=== PATIENT | female | born 1980 | race American Indian/Alaskan Native ===

== ENCOUNTER 2019-05-04 02:18 | Inpatient (IN) | payer OTHER ==
[2019-05-04] MEDS ORDERED: LACTATED RINGERS 1,000 ML IV ONE (03:05)
[2019-05-04] MEDS ORDERED: BICITRA ORAL LIQD 30ML PO ONE (04:28)
[2019-05-04] MEDS ORDERED: METOCLOPRAMIDE 10 MG/2 ML INJ IV ONE (04:28)
[2019-05-04] MEDS ORDERED: FAMOTIDINE 20 MG/2 ML INJ IV ONE (04:28)
--- NOTE | 2019-05-04 04:28 | History and Physical Report ---
History of Present Illness Date of examination: 05/04/19 History of present illness: Patient presents to labor and delivery with complaints of ruptured membranes approximately 1:30 AM. Evaluation in triage evaluation confirmed ruptured membranes and patient with history of breech presentation ultrasound confirmed breech presentation. Patient's course complicated by insulin-dependent gestational diabetes. Patient cared for primary section due to breech presentation. Menstrual History Regularity: regular Menses every: 30 days Duration: 5 LMP: 08/24/2018 LMP reliability: definite LMP character: normal test type: urine test Date: 09/28/2018 BC at conception: BCP Planned ? no EDC Calculations LMP: 05/31/2019 EDC Confirmation: 05/31/2019 Past History : 1 Term Births: 0 Premature Births: 0 Living Children: 0 Para: 0 Mult. Births: 0 Prev : 0 Prev. attempt? 0 Aborta: 0 Elect. Ab: 0 Spont. Ab: 0 Ectopics: 0 Past Surgical History: wisdom teeth. no complications with anesthesia Past Medical History Surgery (Non-urogynaecologist): wisdom teeth. no complications with anesthesia Abnormal PAP: negative SPIKE Exposure: negative Infertility: negative Uterine Anomaly: negative Uterine Surgery (not C/S): negative Other Gynecologic Problems: negative Social Hx: denies ETOH/no drugs/ no tobacco Patient is . works as legal stenographer Smoking History: Patient has never smoked. Infection History Hx of STD: chlamydia HIV Risk Eval: low risk Hepatitis B Risk Eval: low risk Personal hx. of genital herpes: no Partner hx. of genital herpes: no Rash, Viral, or Febrile illness since last LMP? no Varicella/Chicken Pox Status: Previous Disease TB Risk: no Infection History Comments: +chlamydia last week Genetic History ADVANCED MATERNAL AGE Congenital Heart Defect: Mom: no Dad: no Sameer Disease: Mom: no Dad: no Thalassemia Mom: no Dad: no Neural Tube Defect Mom: no Dad: no Down's Syndrome Mom: no Dad: no Russell-Sachs Mom: no Dad: no Sickle Cell Disease/Trait Mom: no Dad: no Hemophilia Mom: no Dad: no Muscular Dystrophy Mom: no Dad: no Cystic Fibrosis Mom: no Dad: no [place] Chorea Mom: no Dad: no Mental Retardation Mom: no Dad: no Fragile X Mom: no Dad: no Other Genetic/Chromosomal Disorder Mom: no Dad: no Child w/other defect Mom: no Dad: no Enviromental Exposures Enviromental Exposures Reviewed Xray Exposure: no Medication, drug, or alcohol use since LMP: no Chemical/Other Exposure: no Exposure to Cat Liter: no Hx of Parvovirus (Fifth Disease): no Occupational Exposure to Children: none Current Allergies (reviewed today): No known allergies Past History Past Medical History: other (See HPI) Past Surgical History: other (See HPI) TRUCK DRIVING History: other (See HPI) Family/Genetic History: other (See HPI) Social history: , full code, other (See HPI) - Obstetrical History Expected Date of Delivery: 05/31/19 Actual Gestation: 38 Week(s) 0 Day(s) : 1 Para: 0 Hx # Term Pregnancies: 0 Number of Pregnancies: 0 Spontaneous Abortions: 0 Induced : 0 Number of Living Children: 0 Medications and Allergies Allergies Allergy/AdvReac Type Severity Reaction Status Date / Time No Known Allergies Allergy Unverified 05/04/19 02:56 Home Medications Medication Instructions Recorded Confirmed Last Taken Type Humulin N 30 units SUB-Q QPM 05/05/19 05/05/19 05/03/19 History Humulin R 14 units SUB-Q QPM 05/05/19 05/05/19 05/03/19 History Humulin R 16 units SUB-Q QAM 05/05/19 05/05/19 05/03/19 History Ferrous Sulfate [Feosol 325 MG tab] 325 mg PO BID #60 tablet 05/06/19 Unknown Rx Ibuprofen [Motrin 800 MG tab] 800 mg PO Q6H PRN #30 tablet 05/06/19 Unknown Rx Lidocain2.5%/Prilocai2.5% [Emla] 5 gm TP ONCE PRN #1 tube 05/06/19 Unknown Rx oxyCODONE /ACETAMINOPHEN [Percocet 1 - 2 tab PO Q4H PRN #30 tablet 05/06/19 Unknown Rx 5/325 mg] - Vital Signs Vital signs: Vital Signs Pulse BP 97 H 164/87 05/04/19 02:35 05/04/19 02:35 Temp Pulse Resp BP Pulse Ox 97 H 139/85 05/04/19 03:22 05/04/19 03:22 - Physical Exam Breasts: Positive: deferred Lungs: Positive: Normal air movement Genitourinary (Female): Positive: normal external genitalia Vagina: Positive: normal moisture Uterus: Positive: enlarged - Obstetrical FHR: category 1 Uterine Contraction Pattern: Irregular Results Result Diagrams: 05/04/19 20:25 05/04/19 04:10 All other labs normal. Assessment and Plan - Patient Problems (1) premature rupture of membranes (PPROM) with onset of labor after 24 hours of rupture in first trimester, antepartum Status: Acute (2) Insulin dependent gestational diabetes mellitus (GDM), antepartum Status: Acute (3) Advanced maternal age affecting , antepartum Status: Acute (4) BMI 33.0-33.9,adult Status: Acute (5) Breech presentation Status: Acute Qualifiers: Fetus number: single or unspecified fetus Qualified Code(s): O32.1XX0 - Maternal care for breech presentation, not applicable or unspecified Plan to address problem: Discussed indication for operative delivery. Patient informed the risks of the surgery include bleeding possibly bleeding heavy enough to require blood transfusion, infection possible damage to bowel bladder ureter. All questions answered. Patient agrees to proceed (6) labor Status: Acute Qualifiers: labor trimester: third trimester Fetus number: single or unspecified fetus
--- NOTE | 2019-05-04 04:32 | Ultrasound Report ---
ULTRASOUND OBSTETRIC Indication: History of labor. Evaluate weight and ANABELA. COMPARISON: None. Findings: There is a single intrauterine . BPD = 9.2 cm = 37 weeks, 2 day(s). Head circumference = 32.8 cm = 37 weeks, 1 day(s). Abdominal circumference = 32.7 cm = 36 weeks, 4 day(s). Femur length = 7.3 cm = 37 weeks, 3 day(s). Overall estimated sonographic age = 37 weeks, 1 day(s). heart rate is 130 beats per minute. Estimated weight is 3073 grams position is breech. Placenta is anterior and grade 2 . Amniotic fluid volume decreased and measures 3.4 cm. Impression: 1. Single living intrauterine with estimated sonographic age of 37 weeks, 1 day(s). Additi onal details as given above. Signer Name: Alessandra Terry MD Signed: 05/04/2019 4:27 AM Workstation Name: [id number] [facility] [id number]
[2019-05-04 04:43] LABS: Basophils % (Auto) 0.1 % (0.0-1.8); Eosinophils # (Auto) 0.1 K/mm3 (0.0-0.4); Eosinophils % (Auto) 1.3 % (0.0-4.3); Hematocrit 39.7 % (30.3-42.9); Hemoglobin 13.7 gm/dl (10.1-14.3); Lymphocytes # (Auto) 1.4 K/mm3 (1.2-5.4); Lymphocytes % (Auto) 18.2 % (13.4-35.0); Mean Corpuscular HGB Conc 35 % (30-34); Mean Corpuscular Volume 92 fl (79-97); Monocytes # (Auto) 1.1 K/mm3 (0.0-0.8); Monocytes % (Auto) 13.7 % (0.0-7.3); Platelet Count 224 K/mm3 (140-440); Red Blood Count 4.32 M/mm3 (3.65-5.03); Red Cell Distribution Width 14.8 % (13.2-15.2)
[2019-05-04 04:56] LABS: BUN/Creatinine Ratio 23; Blood Urea Nitrogen 16 mg/dL (7-17); Calcium 9.4 mg/dL (8.4-10.2); Hemolysis Index 8
[2019-05-04] MEDS ORDERED: ceFAZolin/Water 2 GM/20 ML 2 GM/20 ML SYRINGE IV NR (05:00)
[2019-05-04] MEDS ORDERED: LACTATED RINGERS 1,000 ML IV SCH (05:00)
[2019-05-04] MEDS ORDERED: OXYTOCIN 20 UNIT/1000ML DRIP 20 UNITS/1,000 ML BAG IV SCH ×2 (05:00→10:30)
[2019-05-04] MEDS ORDERED: TERBUTALINE 1 MG/1 ML INJ SUB-Q ONE (05:19)
[2019-05-04] MEDS ORDERED: ONDANSETRON 4 MG/2 ML INJ ONE (06:56)
[2019-05-04] MEDS ORDERED: KETOROLAC 30 MG/1 ML INJ ONE (06:56)
[2019-05-04] MEDS ORDERED: PHENYLEPHRINE/NS 1,000 MCG/10 ML SYRINGE (OR USE) IV ONE (06:56)
[2019-05-04] MEDS ORDERED: DEXMEDETOMIDINE 200 MCG/2 ML VIAL IV ONE (06:56)
--- NOTE | 2019-05-04 07:53 | Anesthesia Consultation ---
Anesthesia Consult and Med Hx Date of service: 05/04/19 - Airway Anesthetic Teeth Evaluation: Good ROM Head & Neck: Adequate Mental/Hyoid Distance: Adequate Mallampati Class: Class II Intubation Access Assessment: Good - Pulmonary Exam CTA: Yes - Cardiac Exam Cardiac Exam: RRR - Pre-Operative Health Status ASA Pre-Surgery Classification: ASA2, Emergency Proposed Anesthetic Plan: Spinal - Pulmonary Hx Asthma: No - Cardiovascular System Hx Hypertension: No - Central Nervous System Hx Seizures: No Hx Psychiatric Problems: No - Endocrine Hx Renal Disease: No Hx Insulin Dependent Diabetes: Yes (gestational) Hx Hypothyroidism: No Hx Hyperthyroidism: No - Hematic Hx Anemia: No Hx Sickle Cell Disease: No - Other Systems Hx Alcohol Use: No
--- NOTE | 2019-05-04 07:54 | Anesthesia Day of Surgery ---
Anesthesia Day of Surgery - Day of Surgery Patient Examined: Yes Patient H&P Reviewed: Yes Patient is NPO: Yes
--- NOTE | 2019-05-04 07:54 | Post Anesthesia Evaluation ---
- Post Anesthesia Evaluation Patient Participated: Yes Airway Patent: Yes Stable Respiratory Function: Yes Nausea/Vomiting: No Temp > 96.8F: Yes Pain Manageable: Yes Adequeate Hydration: Yes Anesthesia Complications: No Block Receding Appropriately: Yes Patient on Ventilator: No
[2019-05-04] MEDS ORDERED: NALOXONE 0.4 MG/1 ML INJ IV PRN ×2 (08:00→10:30)
[2019-05-04] MEDS ORDERED: PROMETHAZINE 25 MG TAB PO PRN (08:00)
[2019-05-04] MEDS ORDERED: PROMETHAZINE 25 MG RECT SUPP PR PRN (08:00)
[2019-05-04] MEDS ORDERED: ONDANSETRON 4 MG/2 ML INJ IV PRN ×2 (08:00→10:30)
[2019-05-04] MEDS ORDERED: HYDROmorphone 1 MG/1 ML INJ IV PRN ×2 (08:00)
--- NOTE | 2019-05-04 08:17 | Operative Report ---
Operative Report Operative Report: Date of procedure: 05/04/2019 Pre-operative diagnosis: Intrauterine at 36 weeks with premat ure rupture of membranes, breech presentation and insulin-dependent gestational diabetes Post-operative diagnosis: Same Procedure name(s): Primary low transverse section Surgeon: Ambrosio Peterson MD Makeup Sales Consultant: Anesthesia: Spinal EBL: 600 mL Complications: None Findings: Normal uterus tubes and ovaries, male infant breech presentation, weight 6 lbs. 0 oz., Apgars 8 at 1 minute 9 at 5 minutes Specimen(s): None Procedure: The patient was brought to the operating room. A spinal was placed without any complications. She was then placed in left lateral tilt. Prepped and draped in the usual sterile manner. After testing for adequate anesthesia level, a Pfannenstiel incision was made. This incision was taken down to the fascia. The fascia was then nicked in the midline. This incision was extended out laterally with Abel scissors. The fascia was then sharply and bluntly from the underlying rectus muscles. The rectus muscles were bluntly and sharply . The peritoneum was then entered with the service control operator's fingers. This incision was spread vertically with care not to damage the bladder below. Catrachito retractor was then placed to the incision. The bladder flap was then formed sharply and bluntly with Metzenbaum scissors. A transverse incision was made in lower uterine segment. This incision was extended laterally with the operators fingers. The amniotic sac was then entered bluntly with the service control operator's fingers. The infant was delivered by delivered in the breech first flexing and extending the lower extremities followed by raising the breech then sweeping flexing and extending the upper extremities and after coming head was then delivered safely. The was bulb suctioned on the mother's abdomen. Cord was double clamped and cut. The was then passed to the nursery personnel who were in attendance. The above scores were given by the nursery personnel. The placenta was then bluntly removed. The uterus was then externalized and wiped clean the remaining products. The uterine incision was closed in layers. The first incision was closed in a locking manner using 0 Vicryl. This was followed by imbricating stitch also with 0 Vicryl. This closure was hemostatic. The bladder flap was copiously irrigated and found to be hemostatic. The pelvis was copiously irrigated and found to be hemostatic. The uterus was then placed back to the patient's abdomen. The retractors were removed. The rectus muscles were inspected and found to be hemostatic. The fascia was then closed in a running manner using 0 Vicryl. This incision was hemostatic irrigation Bovie. The skin was reapproximated with 4-0 Vicryl subcuticularly. The patient tolerated procedure well. Her urine was clear. The infant was admitted to the well baby nursery. The patient was accompanied to recovery room in good condition. Instrument count correct 3.
--- NOTE | 2019-05-04 08:41 | Procedure Note ---
OB Delivery Note - Delivery Date of Delivery: 05/04/19 Surgeon: BEATRICE SHAIKH Estimated blood loss: 500cc - Section Preop diagnosis: breech, other (PPROM GDM insulin dependent) Postop diagnosis: same section procedure: section, primary low transverse Disposition: PACU Complications: none - Infant A at 1 minute: 7 at 5 minutes: 9 Infant Gender: Male (6lbs 0oz)
[2019-05-04] MEDS ORDERED: DEXTROSE 50% IN WATER (25GM) 50 ML SYRINGE IV PRN (09:47)
[2019-05-04] MEDS ORDERED: LANOLIN/ZINC/DIMETHICONE (LANSINOH) 7 GM TP PRN (10:30)
[2019-05-04] MEDS ORDERED: SODIUM CHLORIDE 0.9% 1000 ML 1,000 ML IV SCH (10:30)
[2019-05-04] MEDS ORDERED: WITCH HAZEL/ GLYCERIN PAD TP PRN (10:30)
[2019-05-04] MEDS ORDERED: HYDROCORTISONE 25 MG RECTAL SUPP PR PRN (11:00)
[2019-05-04] MEDS ORDERED: FLU VACC QUAD 2019-20 (3 YR UP)/PF 60 MCG/0.5 ML SYRINGE IM ONE (12:00)
[2019-05-04] MEDS: ceFAZolin/NS 1 GM/50 ML 1 GM/50 ML BAG IV SCH ×2 (12:28→21:08)
[2019-05-04] MEDS: KETOROLAC 30 MG/1 ML INJ IV PRN ×2 (12:29→17:42)
[2019-05-04 21:03] LABS: Hematocrit 34.8 % (30.3-42.9); Hemoglobin 11.7 gm/dl (10.1-14.3)
[2019-05-04] MEDS: HYDROcodone/ACETAMINOPHEN 5-325 MG TAB PO PRN (21:11)
[2019-05-04] MEDS ORDERED: SENNOSIDES 8.6 MG TAB PO PRN (22:00)
[2019-05-04] MEDS ORDERED: MAGNESIUM HYDROXIDE (MOM) ORAL LIQD UDC PO PRN (22:00)
[2019-05-05] MEDS: INSULIN REGULAR, HUMAN 100 UNITS/1 ML SUB-Q SCH ×2 (00:19→05:53)
[2019-05-05] MEDS: KETOROLAC 30 MG/1 ML INJ IV PRN (05:18)
[2019-05-05] MEDS ORDERED: TETANUS,DIPH,PERTUSS(ACELL) VACCINE 0.5 ML SYRINGE IM ONE (06:00)
--- NOTE | 2019-05-05 09:51 | Progress Note ---
Assessment and Plan patient doing well postop day #1, in the shower. incision D&I. VSSAF, postop H&H 11.7/34.8, lochia scant. continue postop pathway. - Patient Problems (1) delivery delivered Current Visit: Yes Status: Acute Plan to address problem: continue postop pathway. (2) Insulin dependent gestational diabetes mellitus (GDM), antepartum Current Visit: Yes Status: Acute Subjective - Subjective Date of service: 05/05/19 Principal diagnosis: day #1 s/p repeat c/s Patient reports: appetite normal, voiding normally, pain well controlled, flatus, ambulating normally, no dizzy ambulation, no nauseated Carver: doing well, bottle feeding Objective - Vital Signs Latest vital signs: Vital Signs Temp Pulse Resp BP BP Pulse Ox 05/05/19 07:36 97.5 F L 107 H 18 115/73 05/05/19 00:45 97.7 F 95 H 20 122/72 97 05/04/19 20:42 98.2 F 95 H 20 127/69 100 05/04/19 17:42 20 05/04/19 17:30 98.3 F 82 18 112/66 98 05/04/19 12:29 20 Intake and Output 05/04/19 05/05/19 05/05/19 23:59 07:59 15:59 Intake Total 360 720 Output Total 1650 800 Balance -1290 -80 Intake: Oral 360 720 Output: Urine 1650 800 Indwelling Catheter 1200 Void 450 800 Other: Total, Intake Amount 360 480 Total, Output Amount 450 800 # Voids Void 1 1 - Exam Breasts: Present: normal Cardiovascular: Present: Regular rate Lungs: Present: Clear to auscultation, Normal air movement Abdomen: Present: normal appearance, soft Vulva: both: normal Uterus: Present: normal, firm, fundal height above umbilicus Extremities: Present: normal Incision: Present: normal, dry, intact - Labs Labs: Abnormal lab results 05/04/19 Range/Units 12:01 POC Glucose 113 H (70-105)
[2019-05-05] MEDS: FERROUS SULFATE 325 MG TAB PO SCH (10:28)
[2019-05-05] MEDS: PRENATAL VIT27-FE FUMARATE-FOLIC ACID VIT TAB PO SCH (10:28)
[2019-05-05] MEDS: HYDROcodone/ACETAMINOPHEN 5-325 MG TAB PO PRN (10:30)
[2019-05-05] MEDS: IBUPROFEN 800 MG TAB PO PRN (17:22)
[2019-05-06] MEDS: IBUPROFEN 800 MG TAB PO PRN (05:48)
[2019-05-06] MEDS: HYDROcodone/ACETAMINOPHEN 5-325 MG TAB PO PRN (09:53)
[2019-05-06] MEDS: PRENATAL VIT27-FE FUMARATE-FOLIC ACID VIT TAB PO SCH (09:53)
[2019-05-06] MEDS: FERROUS SULFATE 325 MG TAB PO SCH (09:53)
--- NOTE | 2019-05-06 12:00 | Discharge Summary ---
Providers - Providers Date of Admission: 05/04/19 07:22 Date of discharge: 05/06/19 (desires d/c home today) Attending physician: BEATRICE SHAIKH 05/04/19 09:47 Consult to Warp Spooler [CONS] Routine Reason For Exam: Primary care physician: BEATRICE SHAIKH Hospitalization Reason for admission: PPROM, breech presentation Condition: Good Pertinent studies: postop H&H 11.7/34.8 Procedures: primary c/s Hospital course: uncomplicated c/s and postop course Disposition: - TO HOME OR SELFCARE - Discharge Diagnoses (1) delivery delivered Status: Acute (2) Insulin dependent gestational diabetes mellitus (GDM), antepartum Status: Acute Core Measure Documentation - Palliative Care Palliative Care/ Comfort Measures: Not Applicable - Core Measures Any of the following diagnoses?: none Exam - Constitutional Vitals: Temp Pulse Resp BP Pulse Ox 98.6 F 96 H 20 119/69 93 05/06/19 07:29 05/06/19 07:29 05/06/19 07:29 05/06/19 07:29 05/06/19 07:29 General appearance: Present: no acute distress, well-nourished - EENT Eyes: Present: PERRL ENT: hearing intact, clear oral mucosa - Neck Neck: Present: supple, normal ROM - Respiratory Respiratory effort: normal Respiratory: bilateral: CTA - Cardiovascular Rhythm: regular Heart Sounds: Absent: rub, click - Extremities Extremities: No edema - Abdominal General gastrointestinal: Present: soft, non-tender, non-distended, normal bowel sounds Female genitourinary: Present: normal - Integumentary Integumentary: Present: clear, warm, dry - Musculoskeletal Musculoskeletal: gait normal, strength equal bilaterally - Psychiatric Psychiatric: appropriate mood/affect, intact judgment & insight - Neurologic Neurologic: CNII-XII intact, moves all extremities - Additional findings Additional findings: fundus firm, lochia scant, incision D&I Plan Activity: advance as tolerated Diet: regular Wound: open to air, keep clean and dry Follow up with: BEATRICE SHAIKH MD [Primary Care Provider] - 7 Days (Congratulations! Please call [phone] to schedule your incision check and your son's cir cumcision in 1 week. Bring EMLA cream to your son's visit and await further teaching. Call for any questions or concerns.) Prescriptions: Lidocain2.5%/Prilocai2.5% [Emla] 5 gm TP ONCE PRN #1 tube PRN Reason: Pain Ferrous Sulfate [Feosol 325 MG tab] 325 mg PO BID #60 tablet Ibuprofen [Motrin 800 MG tab] 800 mg PO Q6H PRN #30 tablet PRN Reason: Pain oxyCODONE /ACETAMINOPHEN [Percocet 5/325 mg] 1 - 2 tab PO Q4H PRN #30 tablet PRN Reason: Pain, Moderate
[2019-05-06 14:22] VITALS: BP 123/81
== END 2019-05-06 15:00 | disposition home or self-care (01) | DRG 786 ==
LOC: TRG 02:18 → APU 07:22 → OB 09:33
PROVIDERS: ADMIT Obstetrics & Gynecology; ATTEND Obstetrics & Gynecology
PROC: 10D00Z1 Extraction of Products of Conception, Low, Open Approach (ICD-10-PCS; principal; 2019-05-04)
PROC: 3E0234Z Introduction of Serum, Toxoid and Vaccine into Muscle, Percutaneous Approach (ICD-10-PCS; 2019-05-05)
DX: O42.913 Preterm premature rupture of membranes, unspecified as to length of time between rupture and onset of labor, third trimester (principal); O60.14X0 Preterm labor third trimester with preterm delivery third trimester, not applicable or unspecified; O32.1XX0 Maternal care for breech presentation, not applicable or unspecified; O24.424 Gestational diabetes mellitus in childbirth, insulin controlled; Z3A.36 36 weeks gestation of pregnancy; Z37.0 Single live birth; Z23 Encounter for immunization
CPT/HCPCS: 36415; 59025; 76816; 80048; 82962; 85014; 85018; 85025; 86850; 86900; 86901; 90471; 90686; 90715; 96372; G0378; J0690; J1885; J2370; J2405; J2590; J2765; J3105; J3490; J7030; J7120